=== PATIENT | female | born 2000 | race Caucasian/White ===

== ENCOUNTER 2020-09-17 09:47 | Outpatient (REF) | payer OTHER, SELFPAY | END 2020-09-17 09:48 | disposition home or self-care (01) | LOC: HO.LAB 09:47 | PROVIDERS: Visit Provider Internal Medicine | DX: Z20.828 Contact with and (suspected) exposure to other viral communicable diseases (principal) | CPT/HCPCS: U0003 ==

== ENCOUNTER 2021-03-05 11:00 | Outpatient (RCR) | payer OTHER, SELFPAY ==
--- NOTE | 2020-12-11 18:02 | MHC.PT.EP ---
[facility] [place] Office [place] Office [place] Office [address] Vitaliy Ibrahim [address] [phone] F: [phone] F: [phone] F: [phone] F: [phone] Physical Therapy Plan of Care Date of Evaluation: 12/11/20 Date of Surgery: Diagnosis: This is a 19 yo female presenting to skilled PT with a script for low back pain. Assessment: This is a 19 yo female presenting to skilled PT with a script for low back pain. The patient is here today reporting Dr. Moralez told her she had a slight curve and is now having pain that is getting worse even with back brace and stretches. Her pain has been ongoing for a few years. 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 She was given naproxen for pain and swelling and lidocaine patches at her last PCP visit. Pain is located at tailbone and across low back. She describes this as achy and occasionally burning. Her pain comes and goes. At the worst she had some leg symptoms anterior and lateral to about the knee (the last time this occurred was 3 months ago). She has had PT for this pain in the past (last year) which helped for a few months and then it returned. Assessment reveals pain that ranges 6-9/10. She demos decreased hip ROM, hip/glut and core strength, impaired posture with sitting and standing as well as functional lifting, ? SIJ involvement and impaired pain management. She is functionally limited in work related pushing/pulling and lifting, sleeping and walking. She is a good candidate for skilled PT 2x/wk for 6wks. Frequency and Duration: The patient will be seen 2x/wk for 6wks Short Term Goals: I in HEP Demo good squatting and lifting techniques without cuing from PT Demo proper core stab without cuing from PT Shelter Goals: Demos functional BLE ROM and strength. Improve oswestry by at least 10 points Improve pain at the worst to no more than 2/10 Demo good core control with dynamic work Treatment Plan: Modalities to reduce pain, spasms and effusion. Manual therapy to restore motion and function. Therapeutic exercise to improve strength and flexibility. Neuromuscular re-education for posture and balance. Therapeutic activities to return to functional activities of daily living. Electronically signed by: Jonna West PT Please sign and return to therapist. Thank you for your referral.
--- NOTE | 2021-03-05 12:03 | MHC.PT.DC ---
[facility] [place] Office [place] Office [place] Office [address] Vitaliy Ibrahim [address] [phone] F: [phone] F: [phone] F: [phone] F: [phone] Physical Therapy Discharge Report Diagnosis: This is a 19 yo female presenting to skilled PT with a script for low back pain. Date of Surgery: Date of Evaluation: 12/11/20 Date of Discharge: 03/05/21 Treatments to Date: 19 Cancellations to Date: 0 No Shows to Date: 0 Discharge Status: Achieved Goals Improved Function Independent with HEP Discharge Summary: Pt HAS PROGR VERY WELL IN PT AND HAS MET HER PT GOALS- ULTIMATE GOAL OF PAINFREE WORK TASKS/ ADL TASKS- SHE IS MOTIVATED AND COMPLIANT W HEP AND SELF-SX MGMT STRATEGIES. SHE HAD 0/10 PAIN THIS DATE AND HER OSWESTRY SCORE IMPROVED FROM 21/50 AT EVAL TO 2/50 UPON D/C. Electronically signed by: Jolanta Dickson,PT Please sign and return to therapist. Thank you for your referral.
== END 2021-03-05 12:04 | disposition other institution (70) ==
LOC: HO.PTCHIC 11:00
PROVIDERS: PCP Internal Medicine; Visit Provider Nurse Practitioner Family
DX: M54.5 Low back pain (principal)
CPT/HCPCS: 97110; 97112; 97140; 97161

== ENCOUNTER 2021-05-28 10:50 | Outpatient (REF) | payer OTHER, SELFPAY ==
--- NOTE | ~2021-05-28 | US_ITS ---
EXAMINATION: US PELVIC AND TRANSVAGINAL CLINICAL INFORMATION: Pelvic/perineal pain. Right lower quadrant pain. LMP 1 week ago. COMPARISON: Most recent CT abdomen/pelvis dated 04/28/2020 and pelvic ultrasound dated 02/07/2019. TECHNIQUE: Transabdominal and transvaginal imaging of the pelvis was obtained. FINDINGS: The uterus is anteverted and measures 7 x 2.8 x 4 cm. No myometrial lesion. The endometrium is unremarkable measuring 0.5 cm in thickness. The right ovary is sonographically unremarkable measuring 3.3 x 2 x 1.7 cm for a volume of 6.1 mL. There are simple right ovarian follicles. No follow-up imaging recommended. The left ovary is sonographically unremarkable measuring 3.4 x 1.5 x 1.7 cm for a volume of 4.5 mL. No significant pelvic free fluid. US/US pelvic and transvaginal IMPRESSION: Sonographically unremarkable pelvic ultrasound.
== END 2021-05-28 10:51 | disposition home or self-care (01) ==
LOC: HO.US 10:50
PROVIDERS: PCP Internal Medicine; Visit Provider Internal Medicine
DX: R10.2 Pelvic and perineal pain (principal)
CPT/HCPCS: 76830; 76856

== ENCOUNTER 2021-08-08 10:07 | Outpatient (REF) | payer OTHER, SELFPAY ==
--- NOTE | ~2021-08-08 | XR_ITS ---
EXAMINATION: XR SACROILIAC JOINTS CLINICAL INFORMATION: Spondylosis without myelopathy COMPARISON: None TECHNIQUE: 3 views of the sacroiliac joints FINDINGS: Bones and soft tissues are normal. No fracture. Alignment is anatomic. Sacroiliac joint spaces are well-maintained without erosions or surrounding sclerosis. XR/XR sacroiliac joint 1-2V IMPRESSION: Normal sacroiliac joints.
== END 2021-08-08 10:08 | disposition home or self-care (01) ==
LOC: HO.HMGCX 10:07
PROVIDERS: PCP Internal Medicine; Visit Provider Nurse Practitioner Family
DX: Z13.89 Encounter for screening for other disorder (principal)
CPT/HCPCS: 72200

== ENCOUNTER 2021-10-15 11:00 | Emergency (ER) | payer OTHER, SELFPAY ==
[2021-10-15 11:34] VITALS: BP 117/65; PULSE 80; RESP 16; TEMP 36.8; O2SAT 98; BMI 29.2
[2021-10-15 12:01] VITALS: BP 138/79; PULSE 97; RESP 16; TEMP 36.9; O2SAT 99; BMI 29.2
--- NOTE | 2021-10-15 12:30 | ED.WOUNDLAC ---
HPI - Wound/Laceration General Chief Complaint: Wound/Laceration Stated Complaint: hand laceration at work Time Seen by Provider: 10/15/21 11:49 Source: patient Mode of arrival: ambulatory Limitations: no limitations History of Present Illness HPI narrative: 20-year-old female who works at [employer] presenting to the ED with work related injury she was cutting up thick wall when she looked down she noticed blood in her hand and she sustained a laceration with a knife while she was cutting the pickle prior to arrival. She reports that she is not up-to-date on tetanus. She denies any paresthesias. She denies any thoughts of foreign bodies. She denies any other symptoms complaint or concerns at this time. Onset (ago): minute(s) (Prior to arrival) Extremity Location: left: hand (Little finger) Place: work Patient tetanus UTD: No Context: accidental Associated symptoms: none Treatments prior to arrival: bandage Related Data Previous Rx's Medication Instructions Recorded ibuprofen 600 mg tablet 600 mg PO Q8H PRN #90 tab 08/08/21 Allergies Allergy/AdvReac Type Severity Reaction Status Date / Time ondansetron [From ZOFRAN] Allergy Mild RASH Verified 08/08/21 09:44 Review of Systems Review of Systems: Constitutional : No Fever, No Chills, Cardiovascular : No Chest Pain, No SOB Respiratory : No Dyspnea Gastrointestinal : No abdominal pain Musculoskeletal : No Joint Swelling Skin : positive skin laceration, No Foreign bodies, No rash, No surrounding erythema Neuro : No Weakness, No Numbness/tingling Psych : No SI/HI/thoughts of self injury Yes all other systems are reviewed and are negative [facility] Past Medical History Attestation statement: The following information was validated with the patient. Medical History Anxiety, generalized Lumbar pain Surgical History History of ovarian cystectomy Family History Family History Father Medical history non-contributory Mother Medical history non-contributory Brother No problems noted. Family/Other Breast cancer Social History Social History Alcohol intake: never Patient Tobacco Use Status: Never used Tobacco Advance Directives: No Advance Directives Information Provided: No Patient : No Physical Exam Vital Signs: Vital Signs: Last Vital Signs Temp 98.5 F 10/15/21 12:01 Pulse 97 10/15/21 12:01 Resp 16 10/15/21 12:01 BP 138/79 10/15/21 12:01 Pulse Ox 99 10/15/21 12:01 BMI result Body Mass Index 29.2 vital signs have been reviewed as normal and appeared to be correct. Blood pressure normal Heart rate normal. Respiration rate normal. Temperature normal. Oxygen saturation normal. Appearance: Alert. Oriented X3. No acute distress. Head: Normal external exam. Normocephalic. Atraumatic. Eyes: PERRLA. EOMI. Conjunctiva and sclera normal. Eyelids normal. ENT: Pharynx normal. Uvula midline. Moist mucous membranes. Neck: Normal inspection. Neck supple. FROM. CVS: Normal heart rate and rhythm. Respiratory: No respiratory distress. Painless inspiration. Skin: Skin warm and dry. Normal skin color. Normal skin turgor. No rashes/lesions/lacerations noted. Extremities: To left hand right over the MCP of the 5th digit patient has 1 cm intermediate laceration no active bleeding or foreign bodies or bony tenderness or obvious ligamentous or tendon injury. Otherwise all other Extremities exhibit normal range of motion and nontender. Neuro: Oriented X 3. No motor deficit. No sensory deficit. Reflexes normal. Normal steady gait. No focal neuro deficits noted. Vascular: + radial pulses/+ 2 distal pedal pulses/+2 dorsalis pedis b/l. Normal cap refill. No cyanosis noted to upper extremity nails and lower extremity toes nails. Course Course Course Narrative: Patient now status post laceration repair with 3 sutures placed. Patient tolerated procedure well. No complications. Tetanus updated at this time. Will DC home instructions return and 10-14 days for suture removal and to return sooner if any new or worsening symptoms. Along with instructions to follow-up work connection. Patient understands agrees this is plan. MDM - Wound/Laceration Medical Records Attestation: I reviewed the patient's medical records. Procedures Laceration Laceration 1: Site: hand (Right over the left 5th MCP) Side (If applicable): left Size (cm): 1 Description: linear Depth: simple, single layer Local Anesthetic: lidocaine 2% Amount of anesthesia used (mL): 5 Pre-repair: wound explored, irrigated extensively and deep structures intact Skin layer closed with: nylon Size (cm): 4-0 Number of sutures: 3 Technique: simple, interrupted Discharge Plan Discharge Clinical Impression: Finger laceration, Work related injury Patient Disposition: Home, Self-Care Instructions: Finger Laceration (ED), Return to Work Instructions (ED) Prescriptions: No Action ibuprofen 600 mg tablet 600 mg PO Q8H PRN (Reason: pain) Qty: 90 RF: 0 Referrals: Tien Moralez MD [Primary Care Provider] - 2 days Emma Gastelum PA [Emergency Midlevel Provider] - 10 days (PLEASE RETURN IN 10 DAYS FOR SUTURE REMOVAL RETURN SOONER IF ANY NEW OR WORSENING SYMPTOMS) Work Connection [Provider Group] - 2 days Stand Alone Forms: Work/School Release Print Language: Czech
[2021-10-15] MEDS: Diphth,Pertus(ACell),Tet Adult 0.5 ML SYRINGE IM (12:45)
[2021-10-15] MEDS: Lidocaine HCl 2 % MPF 5 ML VIAL SUBCUT (12:46)
== END 2021-10-15 12:48 | disposition home or self-care (01) ==
PROVIDERS: Emergency Provider Emergency Medicine; PCP Internal Medicine
DX: S61.217A Laceration without foreign body of left little finger without damage to nail, initial encounter (principal); S60.512A Abrasion of left hand, initial encounter; M79.642 Pain in left hand; W26.9XXA Contact with unspecified sharp object(s), initial encounter; Y93.9 Activity, unspecified; Y92.9 Unspecified place or not applicable; Y99.9 Unspecified external cause status
CPT/HCPCS: 12001; 90471; 90715; 99283; 99284

== ENCOUNTER 2021-12-10 08:39 | Emergency (ER) | payer OTHER, SELFPAY ==
--- NOTE | ~2021-12-10 | US_ITS ---
EXAMINATION: US ABDOMEN COMPLETE CLINICAL INFORMATION: Elevated liver enzymes with vomiting. Question gallstones.. COMPARISON: CT scan of April 28, 2020 TECHNIQUE: Real-time imaging of the abdominal viscera. FINDINGS: PANCREAS: Normal. ABDOMINAL AORTA: The proximal, mid, and distal segments are normal in caliber. INFERIOR VENA CAVA: Visualized portions are normal. LIVER: Normal. The liver is normal in size. The liver contour is normal. Parenchymal echogenicity is normal. No focal hepatic lesion. There is no intrahepatic biliary duct dilatation seen. GALLBLADDER: Normal. The gallbladder is physiologically distended without evidence of stones, sludge, polyps, wall thickening or pericholecystic fluid. COMMON BILE DUCT: Normal in caliber measuring 0.4 cm in diameter. RIGHT KIDNEY: Normal. No hydronephrosis. No renal calculi or focal parenchymal lesions. The kidney measures 9.8 cm in maximum dimension. LEFT KIDNEY: Normal. No hydronephrosis. No renal calculi or focal parenchymal lesions. The kidney measures 9.6 cm in maximum dimension. SPLEEN: Normal. The spleen measures 10.3 cm in maximum dimension. FREE FLUID: None. US/US abdomen complete IMPRESSION: No ultrasound abnormality of the abdomen appreciated.
--- NOTE | ~2021-12-10 | US_ITS ---
EXAMINATION: US OBSTETRICAL ULTRASOUND CLINICAL INFORMATION: Abdominal pain COMPARISON: February 07, 2019. LMP: October 31, 2021. Gestational age by maternal dates is 5 weeks 5 days. Estimated date of delivery by maternal dates is August 07, 2022. TECHNIQUE: OB ultrasound including transvaginal study. FINDINGS: There is a single intrauterine gestational sac with visible yolk sac, embryo/fetus, and cardiac activity. There is no significant subchorionic hemorrhage or hematoma. HR: 114 beats per minute. CRL (crown rump length): 0.38 cm (6 weeks 1 day +/- 4 days). PEPE (estimated date of delivery): August 04, 2022 +/- 4 days. MATERNAL ADNEXA: The right maternal ovary measures 2.5 x 2.6 x 3.4 cm. There is a 1.3 x 1.0 x 1.2 cm heterogeneous and echogenic right ovarian structure likely representing corpus luteum cyst. No ring of vascularity is appreciated. The left maternal ovary measures 2.6 x 1.4 x 2.0 cm. No left adnexal abnormality appreciated. There is no significant maternal adnexal mass. No maternal pelvic ascites. US/US OB pelvic and transvaginal IMPRESSION: 1. Single intrauterine gestation with ultrasound gestational age of 6 weeks 1 day +/- 4 days. 2. Estimated date of delivery is August 04, 2022 +/- 4 days. 3. No maternal adnexal mass or pelvic ascites.
[2021-12-10 08:41] VITALS: BP 125/67; PULSE 88; RESP 16; TEMP 37.1; O2SAT 100; BMI 30.1
--- NOTE | 2021-12-10 09:24 | ED_ITS ---
HPI - General Adult General Chief complaint: Nausea/Vomiting/Diarrhea Stated complaint: vomiting 6 wks Time Seen by Provider: 12/10/21 12:17 Source: patient Mode of arrival: ambulatory Limitations: no limitations History of Present Illness HPI narrative: 20-year-old female about 6 weeks presents to ED for vomiting and not being able to keep anything down. Patient states feeling weak and de hydrated. Patient denies any abdominal pain, vaginal bleeding, vaginal discharge, flank pain, fever, or chills. Patient denies any diarrhea. Patient states unvaccinated against COVID. Patient states her coworkers were positive for COVID and she was exposed to them. Related Data Previous Rx's Medication Instructions Recorded metoclopramide HCl 10 mg tablet 10 mg PO Q6H PRN 7 Days #28 tab 12/10/21 (Reglan) Allergies Allergy/AdvReac Type Severity Reaction Status Date / Time ondansetron [From ZOFRAN] Allergy Mild RASH Verified 10/24/21 09:06 Review of Systems Verdana 4l Review of Systems: Verdana 4d Nausea and Verdana 4d vomiting Verdana 4d Yes all other systems are reviewed and are negative [facility] Past Medical History Medical History Anxiety, generalized Lumbar pain Surgical History History of ovarian cystectomy Family History Family History Father Medical history non-contributory Mother Medical history non-contributory Brother No problems noted. Family/Other Breast cancer Social History Social History Alcohol intake: never Patient Tobacco Use Status: Never used Tobacco Advance Directives: No Advance Directives Information Provided: No Patient : Yes Physical Exam Verdana 4l Vital Signs: Verdana 4d Verdana 4d Vital Signs: Verdana 4d Verdana 4Bd Last Vital Signs Verdana 4d Customer Order Clerk New 4d Customer Order Clerk New 4d Temp 98.8 F 12/10/21 08:41 Customer Order Clerk New 4d Pulse 88 12/10/21 08:41 Customer Order Clerk New 4d Resp 16 12/10/21 08:41 BP 125/67 12/10/21 08:41 Pulse Ox 100 12/10/21 08:41 BMI result Body Mass Index 30.1 Const: General: cooperative, healthy appearing, comfortable, no acute distress, well developed, alert, awake and Physically active Orientation/consciousness: patient oriented x3 HENMT: Head: Yes normal to inspection, Yes No palpable skull fracture present, Yes normocephalic, Yes atraumatic and No abrasion Eyes: General: appearance normal, both eyes and all related structures Neck: Neck: Yes normal visual inspection, Yes full ROM, Yes no lymphadenopathy, Yes no meningeal signs, Yes trachea midline, Yes supple, No anterior neck swelling and No tender Chest: Chest palpation & inspection: normal inspection of the chest and normal palpation of entire chest wall Resp: Effort & Inspection: normal respiratory effort and able to speak in complete sentences Auscultation: clear to auscultation bilaterally Cardio: Jugular venous distension: no JVD Heart sounds: S1 normal heart sound present and S2 normal heart sound present GI: Inspection: Yes normal to inspection and No abdominal wall ecchymosis Palpation (GI): Soft to palpation, not firm, nontender, no guarding and not rigid : General: No CVA tenderness and Yes no CVA tenderness Back/Spine/Pelvis: Back: no CVA tenderness, No CVA tenderness and No back tenderness Skin: General skin exam: no rashes or lesions noted and elasticity normal Neuro: General: patient oriented x3, gait normal, no meningeal signs and CN's II-XI intact bilaterally Cranial nerves: Yes CN's II-XII intact bilaterally Extrem: General: Yes normal to inspection and Yes full ROM Psych: Appearance: grossly normal, well kempt and not disheveled Course Course Course Narrative: Patient denies any abdominal pain or complaints. Will do labs, IV hydration, Reglan, and re-evaluate. COVID swab ordered Reevaluation(s) Reevaluation #1: Slight elevation in liver enzymes. Went to re-evaluate patient snf patient states she does not have any abdominal pain presently in the ER but she did have some mild upper abdominal pain couple of days ago while vomiting and than resolved. Patient states abdominal pain occurred only after vomiting a lot. Due to elevated liver enzyme was sent for upper abdominal ultrasound to make sure there is no gallstones. Will also do transvaginal ultrasound. Patient's COVID test positive which contributed probably to her symptoms. Time: 11:51 Reevaluation #2: Patient ultrasound transvaginal pelvic positive for intrauterine 5 weeks with heart rate. Abdominal ultrasound negative for gallstones. UA negative for UTI. Patient states feeling better. Patient informed she is COVID positive and educated on signs of respiratory distress and told to return to the ED if she has no symptoms. Patient informed to return to the ED immediately she has abdominal pain, inability to tolerate solid food/liquid, fever, chills, or any other concerning symptoms. Patient passed PO challenge. Time: 13:30 Medical Decision Making MDM Narrative Medical decision making narrative: Hyperemesis . COVID-19 Lab Data Result diagrams: 12/10/21 09:28 12/10/21 09:28 Labs: Lab Results 12/10/21 12/10/21 12/10/21 Range/Units 09:28 09:28 09:28 WBC 5.7 (4.8-10.8) X10*3/uL RBC 4.43 (4.20-5.50) X10*6/uL Hgb 13.6 (12.0-16.0) g/dl Hct 39.5 (37.0-47.0) % MCV 89.2 (80.0-98.0) fL MCH 30.7 (27.0-33.0) pg MCHC 34.4 (31.0-35.0) g/dl RDW 11.9 (11.0-16.0) % Plt Count 224 (160-400) X10*3/uL MPV 9.9 (9.4-12.3) fL Immature Gran % (Auto) 0.2 (0.0-0.4) % Neut % (Auto) 58.8 (45-73) % Lymph % (Auto) 30.1 (20-40) % [place] % (Auto) 10.7 (2-11) % Eos % (Auto) 0.0 (0-4) % Baso % (Auto) 0.2 (0-2) % Lymph # (Auto) 1.7 (1.2-4.9) X10*3/uL [place] # (Auto) 0.6 (0.1-1.2) X10*3/uL Eos # (Auto) 0.0 (0.0-0.4) X10*3/uL Baso # (Auto) 0.0 (0.0-0.2) X10*3/uL Abs Immat Gran (auto) 0.01 (0.00-0.03) X10*3/uL Absolute Neuts (auto) 3.3 (2.0-8.3) x10*3/uL Absolute Nucleated RBC 0.000 (0.0-0.012) X10*3/uL Nucleated RBC % (auto) 0.0 (0.0-0.2) /100WBC PT 12.8 (9.9-13.0) SEC INR 1.1 (0.9-1.1) APTT 29.0 (24.1-38.0) SEC Sodium 138 (135-145) mmol/L Potassium 3.8 (3.3-5.1) mmol/L Chloride 108 (96-108) mmol/L Carbon Dioxide 22 (22-29) mmol/L Anion Gap 12 (12-20) BUN 10 (9-16) mg/dL Creatinine 0.72 (0.5-1.4) mg/dL Estim Creat Clear Calc 122.5 Estimated GFR > 60 Random Glucose 80 (60-115) mg/dL Calcium 9.0 (8.4-10.2) mg/dL Total Bilirubin 0.7 (0.0-1.0) mg/dL Direct Bilirubin 0.4 (0.0-0.5) mg/dL AST 44 H (5-31) U/L ALT 69 H (0-31) U/L Alkaline Phosphatase 35 L (39-117) U/L Total Protein 6.9 (6.5-8.0) g/dL Albumin 4.1 (3.5-5.0) g/dL Lipase 10 (8-78) U/L Beta HCG, Quant 30012 mIU/mL Urine Color Urine Appearance Urine pH (5.0-8.0) Ur Specific Lamar (1.005-1.025) Urine Protein (NEG-TRACE) MG/DL Urine Glucose (UA) (NEG) MG/DL Urine Ketones (NEG) MG/DL Urine Blood (NEG) Urine Nitrite (NEG) Ur Leukocyte Esterase (NEG) Urine RBC (0) /HPF Urine WBC (0-4) /HPF Ur Squamous Epith Cells /LPF Urine Bacteria /LPF Urine Mucus /LPF Urine Test (NEGATIVE) COVID-19 (ADAMARIS) (Negative) COVID-19 Clin Com Blood Type 12/10/21 12/10/21 12/10/21 Range/Units 11:51 11:51 11:51 WBC (4.8-10.8) X10*3/uL RBC (4.20-5.50) X10*6/uL Hgb (12.0-16.0) g/dl Hct (37.0-47.0) % MCV (80.0-98.0) fL MCH (27.0-33.0) pg MCHC (31.0-35.0) g/dl RDW (11.0-16.0) % Plt Count (160-400) X10*3/uL MPV (9.4-12.3) fL Immature Gran % (0.0-0.4) % (Auto) Neut % (Auto) (45-73) % Lymph % (Auto) (20-40) % [place] % (Auto) (2-11) % Eos % (Auto) (0-4) % Baso % (Auto) (0-2) % Lymph # (Auto) (1.2-4.9) X10*3/uL [place] # (Auto) (0.1-1.2) X10*3/uL Eos # (Auto) (0.0-0.4) X10*3/uL Baso # (Auto) (0.0-0.2) X10*3/uL Abs Immat Gran (0.00-0.03) (auto) X10*3/uL Absolute Neuts (2.0-8.3) (auto) x10*3/uL Absolute Nucleated (0.0-0.012) RBC X10*3/uL Nucleated RBC % (0.0-0.2) /100WBC (auto) PT (9.9-13.0) SEC INR (0.9-1.1) APTT (24.1-38.0) SEC Sodium (135-145) mmol/L Potassium (3.3-5.1) mmol/L Chloride (96-108) mmol/L Carbon Dioxide (22-29) mmol/L Anion Gap (12-20) BUN (9-16) mg/dL Creatinine (0.5-1.4) mg/dL Estim Creat Clear Calc Estimated GFR Random Glucose (60-115) mg/dL Calcium (8.4-10.2) mg/dL Total Bilirubin (0.0-1.0) mg/dL Direct Bilirubin (0.0-0.5) mg/dL AST (5-31) U/L ALT (0-31) U/L Alkaline Phosphatase (39-117) U/L Total Protein (6.5-8.0) g/dL Albumin (3.5-5.0) g/dL Lipase (8-78) U/L Beta HCG, Quant mIU/mL Urine Color YELLOW Urine Appearance HAZY Urine pH 6.0 (5.0-8.0) Ur Specific Lamar >= 1.030 H (1.005-1.025) Urine Protein TRACE (NEG-TRACE) MG/DL Urine Glucose (UA) NEG (NEG) MG/DL Urine Ketones >=80 (NEG) MG/DL Urine Blood TRACE (NEG) Urine Nitrite NEG (NEG) Ur Leukocyte NEG (NEG) Esterase Urine RBC 0 (0) /HPF Urine WBC 0-2 (0-4) /HPF Ur Squamous Epith 1+ /LPF Cells Urine Bacteria NONE /LPF Urine Mucus 1+ /LPF Urine Test (NEGATIVE) COVID-19 (ADAMARIS) Positive A (Negative) COVID-19 Clin Com See Note Blood Type O Positive 12/10/21 Range/Units 11:51 WBC (4.8-10.8) X10*3/uL RBC (4.20-5.50) X10*6/uL Hgb (12.0-16.0) g/dl Hct (37.0-47.0) % MCV (80.0-98.0) fL MCH (27.0-33.0) pg MCHC (31.0-35.0) g/dl RDW (11.0-16.0) % Plt Count (160-400) X10*3/uL MPV (9.4-12.3) fL Immature Gran % (Auto) (0.0-0.4) % Neut % (Auto) (45-73) % Lymph % (Auto) (20-40) % [place] % (Auto) (2-11) % Eos % (Auto) (0-4) % Baso % (Auto) (0-2) % Lymph # (Auto) (1.2-4.9) X10*3/uL [place] # (Auto) (0.1-1.2) X10*3/uL Eos # (Auto) (0.0-0.4) X10*3/uL Baso # (Auto) (0.0-0.2) X10*3/uL Abs Immat Gran (auto) (0.00-0.03) X10*3/uL Absolute Neuts (auto) (2.0-8.3) x10*3/uL Absolute Nucleated RBC (0.0-0.012) X10*3/uL Nucleated RBC % (auto) (0.0-0.2) /100WBC PT (9.9-13.0) SEC INR (0.9-1.1) APTT (24.1-38.0) SEC Sodium (135-145) mmol/L Potassium (3.3-5.1) mmol/L Chloride (96-108) mmol/L Carbon Dioxide (22-29) mmol/L Anion Gap (12-20) BUN (9-16) mg/dL Creatinine (0.5-1.4) mg/dL Estim Creat Clear Calc Estimated GFR Random Glucose (60-115) mg/dL Calcium (8.4-10.2) mg/dL Total Bilirubin (0.0-1.0) mg/dL Direct Bilirubin (0.0-0.5) mg/dL AST (5-31) U/L ALT (0-31) U/L Alkaline Phosphatase (39-117) U/L Total Protein (6.5-8.0) g/dL Albumin (3.5-5.0) g/dL Lipase (8-78) U/L Beta HCG, Quant mIU/mL Urine Color Urine Appearance Urine pH (5.0-8.0) Ur Specific Lamar (1.005-1.025) Urine Protein (NEG-TRACE) MG/DL Urine Glucose (UA) (NEG) MG/DL Urine Ketones (NEG) MG/DL Urine Blood (NEG) Urine Nitrite (NEG) Ur Leukocyte Esterase (NEG) Urine RBC (0) /HPF Urine WBC (0-4) /HPF Ur Squamous Epith Cells /LPF Urine Bacteria /LPF Urine Mucus /LPF Urine Test POSITIVE H (NEGATIVE) COVID-19 (ADAMARIS) (Negative) COVID-19 Clin Com Blood Type Discharge Plan Discharge Clinical Impression: Hyperemesis gravidarum, COVID-19 Patient Disposition: Home, Self-Care Instructions: Hyperemesis Gravidarum (ED), COVID-19 (Coronavirus Disease 2019) (ED) Additional Instructions: You are positive for COVID-19. Recommend self-isolation. Your labs came back normal. Ultrasound confirmed . Ultrasound came back negative for any gallstones. Return to the ED immediately for any abdominal pain, nausea, vomiting, vaginal discharge, vaginal bleeding, flank pain, fever, chills, chest pain, shortness of breath, leg swelling, calf pain, weaknss, dizziness or any other concerning symptoms. Please follow-up with primary care provider and your OBGYN Prescriptions: New metoclopramide HCl [Reglan] 10 mg tablet 10 mg PO Q6H PRN (Reason: nausea and vomiting) 7 Days Qty: 28 0RF Referrals: Jose R Cummins MD [Physician] - 2 days (Hyperemesis ) Stand Alone Forms: Work/School Release Interventions: ED Discharge Assessment Last Done: 12/10/21 15:01 Discharge Date/Time: 12/10/21 15:02 Print Language: Faroese
[2021-12-10 09:32] LABS: MANUAL DIFF FLAG NO
[2021-12-10 09:35] LABS: Basophils Percent Auto 0.2 % (0-2); Hematocrit 39.5 % (37.0-47.0); Hemoglobin 13.6 g/dl (12.0-16.0); Imm Gran Abs Auto 0.01 X10*3/uL (0.00-0.03); Imm Gran Pct Auto 0.2 % (0.0-0.4); Lymphocytes Absolute Auto 1.7 X10*3/uL (1.2-4.9); Lymphocytes Percent Auto 30.1 % (20-40); Mean Corpuscular HGB Conc 34.4 g/dl (31.0-35.0); Mean Corpuscular Hemoglobin 30.7 pg (27.0-33.0); Mean Corpuscular Volume 89.2 fL (80.0-98.0); Mean Platelet Volume 9.9 fL (9.4-12.3); Monocytes Absolute Auto 0.6 X10*3/uL (0.1-1.2); Monocytes Percent Auto 10.7 % (2-11); Neutrophils Absolute Auto 3.3 x10*3/uL (2.0-8.3); Neutrophils Percent Auto 58.8 % (45-73); Platelet Count 224 X10*3/uL (160-400); Red Blood Count 4.43 X10*6/uL (4.20-5.50); Red Cell Distribution Width 11.9 % (11.0-16.0); White Blood Count 5.7 X10*3/uL (4.8-10.8)
[2021-12-10 09:40] LABS: INTERNATIONAL NORM RATIO 1.1 (0.9-1.1); Prothrombin Time 12.8 SEC (9.9-13.0)
[2021-12-10] MEDS: Metoclopramide HCl 10 MG/2 ML VIAL IVPUSH (09:44)
[2021-12-10] MEDS: Lactated Ringers 500 ML 999 ML IV (09:44)
[2021-12-10] MEDS: Lactated Ringers 1,000 ML 999 ML IV (09:44)
[2021-12-10 09:58] LABS: Alanine Aminotransferase 69 U/L (0-31); Albumin Level 4.1 g/dL (3.5-5.0); Alkaline Phosphatase 35 U/L (39-117); Anion Gap 12 (12-20); Aspartate Amino Transferase 44 U/L (5-31); Bilirubin Direct 0.4 mg/dL (0.0-0.5); Bilirubin Total 0.7 mg/dL (0.0-1.0); Blood Urea Nitrogen 10 mg/dL (9-16); Carbon Dioxide 22 mmol/L (22-29); Chloride 108 mmol/L (96-108); Creatinine Clr Calc Pharmacy 122.5; Estimated Glomerular Filt Rate > 60; Glucose Random 80 mg/dL (60-115); Lipase 10 U/L (8-78); Potassium 3.8 mmol/L (3.3-5.1); Sodium 138 mmol/L (135-145); Total Protein 6.9 g/dL (6.5-8.0)
[2021-12-10 10:21] LABS: HCG Quantitative 40479 mIU/mL
[2021-12-10 12:00] LABS: Appearance Urine HAZY; Color Urine YELLOW; Glucose Urine UA NEG (NEG); Leukocyte Esterase Urine NEG (NEG); Nitrite Urine NEG (NEG); Specific Gravity - Urine >= 1.030 (1.005-1.025); UACC Culture Trigger NO; Urine Blood TRACE (NEG); Urine Ketones >=80 MG/DL (NEG); Urine Protein TRACE MG/DL (NEG-TRACE)
[2021-12-10 12:10] LABS: UPreg QC Valid YES; Urine Pregnancy POSITIVE (NEGATIVE)
[2021-12-10 12:12] LABS: COVID-19 Test Positive (Negative); IDNOW Serial# 9DD0AD1C
[2021-12-10 12:20] LABS: RBC Urine 0 /HPF (0); WBC Urine 0-2 /HPF (0-4)
[2021-12-10 12:21] LABS: Mucus Urine 1+ /LPF; Squamous Epithelial Cell Urine 1+ /LPF
== END 2021-12-10 15:02 | disposition home or self-care (01) ==
PROVIDERS: Physician Assistant; Emergency Provider Emergency Medicine; PCP Internal Medicine
DX: O98.511 Other viral diseases complicating pregnancy, first trimester (principal); U07.1 COVID-19; Z3A.01 Less than 8 weeks gestation of pregnancy; O21.0 Mild hyperemesis gravidarum
CPT/HCPCS: 36415; 76700; 76801; 76817; 80053; 81001; 81025; 82248; 83690; 84702; 85025; 85610; 85730; 86900; 86901; 87635; 96361; 96374; 99283; 99284; J2765

== ENCOUNTER 2022-02-28 07:02 | Emergency (ER) | payer OTHER, SELFPAY ==
--- NOTE | ~2022-02-28 | US_ITS ---
EXAMINATION: US OB LIMITED CLINICAL INFORMATION: 17 weeks of . Right lower quadrant pain. COMPARISON: 12/10/2021 TECHNIQUE: Sonographic imaging of the pelvis is performed using a transabdominal transducer. FINDINGS: Limited transabdominal pelvic ultrasound examination is performed. A single viable intrauterine gestation is identified with heart rate of 134 bpm. The visualized posterior placenta has normal, homogeneous echotexture. Left ovary is 3 x 4 x 3.6 cm and has normal size follicles. Color Doppler images with spectral waveforms show presence of normal arterial and venous flow within the left ovary. The right adnexal area is poorly visualized. Shadowing is created by bowel gas in the right lower quadrant. The right ovary cannot be seen. No pelvic free fluid. US/US OB limited IMPRESSION: * Single viable intrauterine gestation is observed with heart rate of 134 bpm. * The right ovary is not visualized, obscured by bowel gas. * The left ovary has normal echo texture, normal-sized follicles, and normal Doppler flow. * No pelvic free fluid.
[2022-02-28 07:05] VITALS: BP 134/67; PULSE 97; RESP 16; TEMP 36.1; O2SAT 99; BMI 33.5
--- NOTE | 2022-02-28 07:13 | ED_ITS ---
HPI - Abdominal Pain General Chief Complaint: Abdominal Pain Stated Complaint: headache r side pain 17wks Time Seen by Provider: 02/28/22 07:12 Source: patient Mode of arrival: ambulatory Limitations: no limitations History of Present Illness HPI narrative: 17 weeks MD elicited complaint: abdominal pain Pertinent past history: other (17 weeks ) Onset (ago): day(s) (3) Pain Consistency: intermittent (only when she lays down at night) Location: RLQ Severity: mild Quality: aching Radiation: none Migration to: no migration Exacerbating factors: other (laying down) Relieving factors: nothing Associated symptoms: other (headache) Related Data Previous Rx's Medication Instructions Recorded metoclopramide HCl 10 mg tablet 10 mg PO Q6H PRN 7 Days #28 tab 12/10/21 (Reglan) nitrofurantoin 100 mg PO BID 5 Days #10 cap 02/28/22 monohydrate/macrocrystals 100 mg capsule (Macrobid) Allergies Allergy/AdvReac Type Severity Reaction Status Date / Time ondansetron [From ZOFRAN] Allergy Mild RASH Verified 02/28/22 07:08 Review of Systems Review of Systems Constitutional : No Weight loss, No Fever, No Chills ENT/Mouth : No sore throat, No Rhinorrhea Eyes: No Swelling, No Redness Cardiovascular : No Chest Pain, No SOB, NoEdema Respiratory : No Cough, No Sputum, No Wheezing Gastrointestinal : no Nausea, no Vomiting, no Diarrhea, positive abdominal Pain, No Hematochezia, No Melena Genitourinary : No Dysuria, No Urinary Frequency, No Hematuria, No Urgency , no bleeding Musculoskeletal : No joint pain, No Myalgias, No Joint Swelling Skin : No Skin Lesions, No rash Neuro : No Weakness, No Numbness, No Dizziness,pos Headache Psych : No Anxiety/Panic, No Depression Heme/Lymph: No Bruising, No Lymphadenopathy Endocrine : No Polyuria, No Polydipsia All other systems reviewed and are negative. [facility] Past Medical History Attestation statement: The following information was validated with the patient. Medical History Anxiety, generalized Lumbar pain Surgical History History of ovarian cystectomy Family History Family History Father Medical history non-contributory Mother Medical history non-contributory Brother No problems noted. Family/Other Breast cancer Social History Social History Alcohol intake: never Patient Tobacco Use Status: Never used Tobacco Advance Directives: Yes Advance Directives Information Provided: Yes Advance Directives on File: No Patient : Yes Physical Exam ED Vital Signs: Vital Signs - 24 hr 02/28/22 07:05 02/28/22 08:28 Temperature 97 F Pulse Rate 97 82 Respiratory Rate 16 18 Blood Pressure 134/67 115/69 Pulse Oximetry 99 100 BMI result Body Mass Index 33.5 Appearance: Alert. Oriented X3. No acute distress. Eyes: Pupils equal, round and reactive to light. ENT: Pharynx normal. Neck: Normal inspection. Neck supple. CVS: Normal heart rate and rhythm. Pulses normal. Respiratory: No respiratory distress. Breath sounds normal. Abdomen: Soft and non-tender. Skin: Skin warm and dry. Normal skin color. Normal skin turgor. Extremities: No lower extremity edema. No calf ttp Neuro: Oriented X 3. No motor deficit. No sensory deficit. Procedures Procedure Narrative Procedure Narrative: US: + cardiac activity, single IUP, + FM Course Course Course Narrative: no WBC count, neg CRP doubt appendicitis mild UTI will start on macrobid US negative BP decreased, feels better stable for DC MDM - Abdominal Pain MDM Narrative Medical decision making narrative: 21 yo female G1 at 17w D = US at this time c/o intermittent atypical RLQ pain no n/v/d vaginal bleeding fevers no discharge - seems very atypical for appendicitis given it only happens at night. At this time her abdomen is benign. She does have a history of ovarian cysts. Will obtain basic labs, UA. hydrate and tylenol - she has very mild headache suspect a component of dehydration - no fevers, normal neuro exam, no meningeal signs doubt meningitis will repeat BP Lab Data Result diagrams: 02/28/22 07:56 02/28/22 07:56 Labs: Lab Results 02/28/22 02/28/22 02/28/22 Range/Units 07:56 07:56 08:04 WBC 9.5 (4.8-10.8) X10*3/uL RBC 3.61 L (4.20-5.50) X10*6/uL Hgb 11.1 L (12.0-16.0) g/dl Hct 32.6 L (37.0-47.0) % MCV 90.3 (80.0-98.0) fL MCH 30.7 (27.0-33.0) pg MCHC 34.0 (31.0-35.0) g/dl RDW 13.0 (11.0-16.0) % Plt Count 244 (160-400) X10*3/uL MPV 9.4 (9.4-12.3) fL Immature Gran % (Auto) 0.7 H (0.0-0.4) % Neut % (Auto) 76.8 H (45-73) % Lymph % (Auto) 15.9 L (20-40) % [place] % (Auto) 5.6 (2-11) % Eos % (Auto) 0.8 (0-4) % Baso % (Auto) 0.2 (0-2) % Lymph # (Auto) 1.5 (1.2-4.9) X10*3/uL [place] # (Auto) 0.5 (0.1-1.2) X10*3/uL Eos # (Auto) 0.1 (0.0-0.4) X10*3/uL Baso # (Auto) 0.0 (0.0-0.2) X10*3/uL Abs Immat Gran (auto) 0.07 H (0.00-0.03) X10*3/uL Absolute Neuts (auto) 7.3 (2.0-8.3) x10*3/uL Absolute Nucleated RBC 0.000 (0.0-0.012) X10*3/uL Nucleated RBC % (auto) 0.0 (0.0-0.2) /100WBC Sodium 136 (135-145) mmol/L Potassium 3.8 (3.3-5.1) mmol/L Chloride 108 (96-108) mmol/L Carbon Dioxide 21 L (22-29) mmol/L Anion Gap 11 L (12-20) BUN 7 L (9-16) mg/dL Creatinine 0.58 (0.5-1.4) mg/dL Estim Creat Clear Calc 153.2 Estimated GFR > 60 Random Glucose 83 (60-115) mg/dL Calcium 8.6 (8.4-10.2) mg/dL Magnesium 1.8 (1.6-2.6) mg/dL Total Bilirubin 0.5 (0.0-1.0) mg/dL Direct Bilirubin < 0.2 (0.0-0.5) mg/dL AST 16 D (5-31) U/L ALT 20 (0-31) U/L Alkaline Phosphatase 44 D (39-117) U/L C-Reactive Protein 0.17 (< or = 0.50) mg/dL Total Protein 5.4 L D (6.5-8.0) g/dL Albumin 3.2 L D (3.5-5.0) g/dL Lipase 9 (8-78) U/L Urine Color YELLOW Urine Appearance HAZY Urine pH 6.5 (5.0-8.0) Ur Specific [place] 1.015 (1.005-1.025) Urine Protein NEG (NEG-TRACE) MG/DL Urine Glucose (UA) NEG (NEG) MG/DL Urine Ketones NEG (NEG) MG/DL Urine Blood NEG (NEG) Urine Nitrite NEG (NEG) Ur Leukocyte Esterase 2+ H (NEG) Urine RBC 0-2 (0) /HPF Urine WBC 5-9 H (0-4) /HPF Ur Squamous Epith Cells 2+ /LPF Amorphous Sediment 1+ /LPF Urine Bacteria 2+ /LPF Urine Mucus TRACE /LPF Discharge Plan Discharge Clinical Impression: Acute dehydration Abdominal pain Qualifiers: Abdominal location: right lower quadrant Qualified Code(s): R10.31 - Right lower quadrant pain UTI (urinary tract infection) Qualifiers: Urinary tract infection type: acute cystitis Hematuria presence: without hematuria Qualified Code(s): N30.00 - Acute cystitis without hematuria Patient Disposition: Home, Self-Care Instructions: Dehydration (ED), Abdominal Pain (ED), Urinary Tract Infection in (ED) Additional Instructions: return to ED for any worsening symptoms or concerns please follow up with your OB this week particularly if your symptoms continue if pain worsens please return - labs stable *? Single viable intrauterine gestation is observed with heart rate of 134 bpm. *? The right ovary is not visualized, obscured by bowel gas. *? The left ovary has normal echo texture, normal-sized follicles, and normal Doppler flow.? *? No pelvic free fluid. Prescriptions: New nitrofurantoin monohyd/m-cryst [Macrobid] 100 mg capsule 100 mg PO BID 5 Days Qty: 10 0RF Rx Instructions: must administer with a meal/food No Action metoclopramide HCl [Reglan] 10 mg tablet 10 mg PO Q6H PRN (Reason: nausea and vomiting) 7 Days Qty: 28 0RF Stand Alone Forms: Work/School Release
[2022-02-28 07:59] LABS: MANUAL DIFF FLAG NO
[2022-02-28 08:01] LABS: Basophils Percent Auto 0.2 % (0-2); Eosinophils Absolute Auto 0.1 X10*3/uL (0.0-0.4); Eosinophils Percent Auto 0.8 % (0-4); Hematocrit 32.6 % (37.0-47.0); Hemoglobin 11.1 g/dl (12.0-16.0); Imm Gran Abs Auto 0.07 X10*3/uL (0.00-0.03); Imm Gran Pct Auto 0.7 % (0.0-0.4); Lymphocytes Absolute Auto 1.5 X10*3/uL (1.2-4.9); Lymphocytes Percent Auto 15.9 % (20-40); Mean Corpuscular Hemoglobin 30.7 pg (27.0-33.0); Mean Corpuscular Volume 90.3 fL (80.0-98.0); Mean Platelet Volume 9.4 fL (9.4-12.3); Monocytes Absolute Auto 0.5 X10*3/uL (0.1-1.2); Monocytes Percent Auto 5.6 % (2-11); Neutrophils Absolute Auto 7.3 x10*3/uL (2.0-8.3); Neutrophils Percent Auto 76.8 % (45-73); Platelet Count 244 X10*3/uL (160-400); Red Blood Count 3.61 X10*6/uL (4.20-5.50); White Blood Count 9.5 X10*3/uL (4.8-10.8)
[2022-02-28 08:19] LABS: Appearance Urine HAZY; Color Urine YELLOW; Glucose Urine UA NEG (NEG); Leukocyte Esterase Urine 2+ (NEG); Nitrite Urine NEG (NEG); PH 6.5 (5.0-8.0); Specific Gravity - Urine 1.015 (1.005-1.025); UACC Culture Trigger YES; Urine Blood NEG (NEG); Urine Ketones NEG (NEG); Urine Protein NEG (NEG-TRACE)
[2022-02-28 08:20] LABS: Alanine Aminotransferase 20 U/L (0-31); Albumin Level 3.2 g/dL (3.5-5.0); Alkaline Phosphatase 44 U/L (39-117); Anion Gap 11 (12-20); Aspartate Amino Transferase 16 U/L (5-31); Bilirubin Direct < 0.2 mg/dL (0.0-0.5); Bilirubin Total 0.5 mg/dL (0.0-1.0); Blood Urea Nitrogen 7 mg/dL (9-16); C Reactive Protein 0.17 mg/dL (< or = 0.50); Calcium 8.6 mg/dL (8.4-10.2); Carbon Dioxide 21 mmol/L (22-29); Chloride 108 mmol/L (96-108); Creatinine Clr Calc Pharmacy 153.2; Estimated Glomerular Filt Rate > 60; Glucose Random 83 mg/dL (60-115); Lipase 9 U/L (8-78); Magnesium 1.8 mg/dL (1.6-2.6); Potassium 3.8 mmol/L (3.3-5.1); Sodium 136 mmol/L (135-145); Total Protein 5.4 g/dL (6.5-8.0)
[2022-02-28] MEDS: 0.9 % Sodium Chloride 1,000 ML 999 ML IVCONT (08:24)
[2022-02-28] MEDS: Acetaminophen 325 MG TABLET 650 MG PO (08:24)
[2022-02-28 08:28] VITALS: BP 115/69; PULSE 82; RESP 18; O2SAT 100
[2022-02-28 08:32] LABS: Amorphous Sediment Urine 1+ /LPF; Bacteria Urine 2+ /LPF; Mucus Urine TRACE /LPF; RBC Urine 0-2 /HPF (0); Squamous Epithelial Cell Urine 2+ /LPF
== END 2022-02-28 09:36 | disposition home or self-care (01) ==
PROVIDERS: Emergency Provider Emergency Medicine; PCP Internal Medicine
DX: O23.12 Infections of bladder in pregnancy, second trimester (principal); O26.892 Other specified pregnancy related conditions, second trimester; R10.31 Right lower quadrant pain; O99.282 Endocrine, nutritional and metabolic diseases complicating pregnancy, second trimester; E86.0 Dehydration; Z3A.17 17 weeks gestation of pregnancy
CPT/HCPCS: 36415; 76815; 80048; 80076; 81001; 83690; 83735; 85025; 86140; 87086; 96360; 99284

== ENCOUNTER 2023-04-23 23:54 | Emergency (ER) | payer OTHER, SELFPAY ==
[2023-04-24 00:06] VITALS: BP 113/65; PULSE 63; RESP 18; TEMP 35.9; O2SAT 99; BMI 39.0
[2023-04-24] MEDS: Tetracaine HCl/PF 0.5% Oph Sol 4 ML DROPS 1 DROP EYE-LEFT (02:58)
--- NOTE | 2023-04-24 02:58 | ED_ITS ---
HPI - Eye Problem General Chief complaint: Eye Problems Stated complaint: Eye injury Time Seen by Provider: 04/24/23 02:48 Source: patient Mode of arrival: ambulatory Limitations: no limitations History of Present Illness HPI Narrative: Patient comes to the emergency room complaining of left-sided eye pain. Patient states that she was trying to close her baby to sleep, and accidentally her baby poked/scratched her eye. Patient complaining of redness, tearing and burning pain Related Data Previous Rx's Medication Instructions Recorded nitrofurantoin 100 mg PO BID 5 days #10 caps 02/28/22 monohydrate/macrocrystals 100 mg capsule (Macrobid) erythromycin 5 mg/gram (0.5 %) eye 0.5 inch ophthalmic (eye) TID #3.5 04/24/23 ointment grams ibuprofen 600 mg tablet 600 mg PO TID PRN pain #14 tabs 04/24/23 Allergies Allergy/AdvReac Type Severity Reaction Status Date / Time ondansetron [From ZOFRAN] Allergy Mild RASH Verified 03/16/23 15:28 Review of Systems Review of Systems: Constitutional : No Weight loss, No Fever, No Chills, No Night Sweats, No Fatigue, No Malaise ENT/Mouth : No Hearing loss, No Ear Pain, No Nasal Congestion, No Sinus Pain, No Hoarseness, No sore throat, No Rhinorrhea, No Swallowing Difficulty Eyes: Complaining of eye pain, redness, burning sensation, No Foreign Body, No Discharge, No Vision Changes Cardiovascular : No Chest Pain, No SOB, No Dyspnea on Exertion, No Orthopnea, No Edema, No Palpitations Respiratory : No Cough, No Sputum, No Wheezing, No Smoke Exposure, No Dyspnea Gastrointestinal : No Nausea, No Vomiting, No Diarrhea, No Constipation, No abdominal Pain, No Hematochezia, No Melena Genitourinary : no irregular bleeding, No Dysuria, No Urinary Frequency, No Hematuria, No Urinary Incontinence, No Urgency, No Flank Pain, No Urinary Flow Changes, No Hesitancy Musculoskeletal : No joint pain, No Myalgias, No Joint Swelling Skin : No Skin Lesions, No rash Neuro : No Weakness, No Numbness, No Paresthesias, No Loss of Consciousness, No Dizziness, No Headache Psych : No Anxiety/Panic, No Depression, No SI/HI/AH/VH, No Social Issues, Heme/Lymph: No Bruising, No Bleeding,No Lymphadenopathy Endocrine : No Polyuria, No Polydipsia, No Temperature Intolerance [facility] Past Medical History Medical History Anxiety, generalized Lumbar pain Surgical History History of ovarian cystectomy Family History Family History Father Medical history non-contributory Bipolar 1 disorder Alcoholism Mother Medical history non-contributory Depression Anxiety Brother No problems noted. Family/Other Breast cancer Maternal Aunt Alcoholism Social History Social History Housing: Apartment Alcohol intake: never Patient Tobacco Use Status: Never used Tobacco e-Cigarette/Vaping Use: Never Used Advance Directives: No Advance Directives Information Provided: No Current occupational status: employed Current occupation: [employer] Cognitive needs: No Hearing needs: No Vision needs: No Physical Exam Vital Signs: Vital Signs: Last Vital Signs Temp 96.7 F L 04/24/23 00:06 Pulse 63 04/24/23 00:06 Resp 18 04/24/23 00:06 BP 113/65 04/24/23 00:06 Pulse Ox 99 04/24/23 00:06 O2 Del Method Room Air 04/24/23 00:06 BMI result Body Mass Index 39.0 Const: Other: Appearance: Alert. Oriented X3. No acute distress. Eyes: pupils equal, round and reactive to light. On fluorescein stain test, patient has a corneal abrasion right in the middle, approximately 3 mm x 3 mm, negatie stephanie sign ENT: Pharynx normal. Neck: Normal inspection. Neck supple. No lymph nodes noted. No crepitus CVS: Normal heart rate and rhythm. Pulses normal. Normal S1 and S2 Respiratory: No respiratory distress. Breath sounds normal. No Wheezing. No rales Abdomen: Soft and nontender. No rigidity. No distention. Skin: Skin warm and dry. Normal skin color. Normal skin turgor. Extremities: No lower extremity edema. No Lacerations. No Rash Neuro: Oriented X 3. No motor deficit. No sensory deficit. Moving all extremities. No slurred speech. CN 2 through 12 grossly intact Psych: calm, cooperative, normal affect Medical Decision Making Medical Decision Making MDM Narrative: -I discussed the patient's physical exam, patient has a corneal abrasion -patient was given 1 dose of IM Toradol Discharge Plan Discharge Clinical Impression: Abrasion, corneal Patient Disposition: Home, Self-Care Instructions: Corneal Abrasion (ED) Additional Instructions: Please follow-up with your primary care physician tomorrow. If you have any worsening or new symptoms, please return to the emergency room or call 911 Prescriptions: New erythromycin 5 mg/gram (0.5 %) ointment 0.5 inch ophthalmic (eye) TID Qty: 3.5 0RF ibuprofen 600 mg tablet 600 mg PO TID PRN (Reason: pain) Qty: 14 0RF No Action nitrofurantoin monohyd/m-cryst [Macrobid] 100 mg capsule 100 mg PO BID 5 Days Qty: 10 0RF Rx Instructions: must administer with a meal/food
== END 2023-04-24 03:10 | disposition home or self-care (01) ==
PROVIDERS: Emergency Provider Emergency Medicine; PCP Internal Medicine
DX: S05.01XA Injury of conjunctiva and corneal abrasion without foreign body, right eye, initial encounter (principal); W50.4XXA Accidental scratch by another person, initial encounter; Y93.89 Activity, other specified; Y92.039 Unspecified place in apartment as the place of occurrence of the external cause; Y99.9 Unspecified external cause status
CPT/HCPCS: 99281; 99283

== ENCOUNTER 2023-10-11 11:31 | Emergency (ER) | payer OTHER, SELFPAY ==
[2023-10-11] VITALS (7 sets, daily range): BP systolic 91–134; BP diastolic 48–79; PULSE 70–95; RESP 16–18; TEMP 36.4–37.8; O2SAT 98–100; BMI 35.7
--- NOTE | ~2023-10-11 | US_ITS ---
US/US OB pelvic and transvaginal IMPRESSION: 1. Unremarkable uterus with no intrauterine distal sac seen.. 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 Heterogeneous complex area in right adnexa. No pole seen within. Cannot exclude ectopic. Recommend follow-up with hCG and if clinically indicated repeat ultrasound. There is moderate free fluid in cul-de-sac. EXAMINATION: US OBSTETRICAL ULTRASOUND CLINICAL INFORMATION: Right lower quadrant pain. COMPARISON: Ultrasound OB 02/28/2022 LMP: Unknown. Gestational age by maternal dates is unknown. Estimated date of delivery by maternal dates is unknown. TECHNIQUE: Transverse abdominal and transvaginal imaging pelvis is performed. FINDINGS: The uterus is anteverted measuring 8.1 cm in length, 4.1 cm in AP and 5.22 cm in transverse dimension. Endometrial thickness is 1.3 cm. There is no intrauterine distal sac or pole. The right ovary measures 4.7 x 3.6 x 4.2 cm. There is hyperechoic area in the ovary measuring 2.8 x 3.3 x 2.9 cm question dermoid. There is a heterogeneous area in the right adnexa measuring 2.7 x 2.6 x 3.2 cm. There is no increased vascularity. The left ovary measures 2.7 x 2.2 x 2.2 cm and appears unremarkable. There is moderate free fluid in the cul-de-sac
--- NOTE | ~2023-10-11 | US_ITS ---
EXAMINATION: US RETROPERITONEAL LIMITED (RENAL ONLY) CLINICAL INFORMATION: Right flank pain. COMPARISON: Ultrasound abdomen complete 12/10/2021 TECHNIQUE: Routine grayscale imaging of kidneys was performed. FINDINGS: RIGHT KIDNEY: 10.0 4.1 x 4.5 cm (SAG x AP x TRV). The kidney is normal in size, contour, and echogenicity. Renal cortical thickness is normal. No calculi or focal parenchymal lesions. No hydronephrosis. LEFT KIDNEY: 10.1 x 6.2 x 5.0 cm (SAG x AP x TRV). The kidney is normal in size, contour, and echogenicity. Renal cortical thickness is normal. No calculi or focal parenchymal lesions. No hydronephrosis. US/US renal BI IMPRESSION: Unremarkable renal ultrasound.
--- NOTE | 2023-10-11 12:14 | ED.ABDPAIN ---
HPI - Abdominal Pain General Chief Complaint: Urogenital-Female Stated Complaint: LRQ pain Time Seen by Provider: 10/11/23 17:32 Source: patient Mode of arrival: ambulatory Limitations: no limitations History of Present Illness HPI narrative: Patient is a 22-year-old female presents emergency department for evaluation of right were but drink per day. Reports sudden onset at approximately 0900 this morning. Pain radiates into the right lower back and toward the umbilicus. She has nausea and associated vomiting, reports numerous episodes of clear emesis. Endorses urinary frequency, dysuria, and hematuria. Denies vaginal bleeding or pelvic pain. States last menstrual period 09/15/23. Denies fevers, chills, chest pain, shortness of breath, diarrhea, constipation, hematochezia, melena, numbness or tingling of the extremities. Related Data Home Medications Medication Instructions Recorded Confirmed sertraline 25 mg tablet 12.5 mg PO DAILY 04/26/23 Previous Rx's Medication Instructions Recorded erythromycin 5 mg/gram (0.5 %) eye 0.5 inch ophthalmic (eye) TID #3.5 04/24/23 ointment grams ibuprofen 600 mg tablet 600 mg PO TID PRN pain #14 tabs 04/24/23 Allergies Allergy/AdvReac Type Severity Reaction Status Date / Time ondansetron [From ZOFRAN] Allergy Mild RASH Verified 04/26/23 11:18 Review of Systems Review of Systems Yes all other systems are reviewed and are negative PMFSH Past Medical History Attestation statement: The following information was validated with the patient. Source: old records reviewed Medical History Anxiety, generalized Lumbar pain Surgical History History of ovarian cystectomy Family History Family History Father Medical history non-contributory Bipolar 1 disorder Alcoholism Mother Medical history non-contributory Depression Anxiety Brother No problems noted. Family/Other Breast cancer Maternal Aunt Alcoholism Social History Housing: Apartment Alcohol intake: never Patient Tobacco Use Status: Never used Tobacco e-Cigarette/Vaping Use: Never Used Use of substances other than those prescribed or required for medical reasons: No Advance Directives: No Advance Directives Information Provided: Yes Current occupational status: employed Current occupation: [employer] Cognitive needs: No Hearing needs: No Vision needs: No Physical Exam ED Vital Signs: Vital Signs - 24 hr 10/11/23 12:12 10/11/23 17:15 10/11/23 18:00 Temperature 97.6 F Pulse Rate 76 70 Respiratory Rate 16 18 18 Blood Pressure 134/79 119/71 Pulse Oximetry 100 98 Oxygen Delivery Method Room Air Room Air 10/11/23 19:54 10/11/23 22:00 Temperature 98.8 F 100.0 F Pulse Rate 73 86 Respiratory Rate 16 16 Blood Pressure 107/48 L 91/51 L Pulse Oximetry 98 Oxygen Delivery Method Room Air BMI result Body Mass Index 35.7 Appearance: Alert.?Oriented to person, place and time. No acute distress.?Normal affect. Eyes: Pupils equal, round and reactive to light.? ENT: Pharynx normal.?? Neck: Normal inspection.? Neck supple.?? CVS: Heart sounds normal. Normal heart rate and rhythm.? Pulses normal.?? Respiratory: No respiratory distress.? Lung sounds clear to auscultation bilaterally?? Abdomen: Soft with right lower quadrant tenderness upon palpation, no rebound tenderness. No rigidity. No guarding. Positive right CVA tenderness.. Normoactive bowel sounds. Skin: Skin warm and dry.? Normal skin color.? Extremities: No lower extremity edema.? No calf ttp? Neuro: Moves all extremities spontaneously. Sensation intact bilaterally. No focal neuro deficits. Ambulates with normal steady gait. Course Course Course Narrative: This is a rapid medical exam. Deferred additional HPI, ROS, PE to primary provider. 22 yo female with history of ovarian cysts here with RLQ pain which radiates to back with vomiting, urinary frequency/hematuria. LMP 09/15 Will obtain labs, UA, ur preg VSS Reevaluation(s) Reevaluation #1: Microscopic hematuria noted, no bacteriuria, urine sample provided without gross hematuria, when asked patient states she does not believe blood previously seen to be vaginal. The testing today is positive the. Will obtain transabdominal transvaginal ultrasound and renal ultrasound to exclude calculi. Time: 18:32 Reevaluation #2: Renal ultrasound unremarkable. Pelvic ultrasound reveals no intrauterine sac identified, heterogeneous complex tear in the right adnexa no pole is seen within, no increased vascularity, cannot exclude ectopic , moderate free fluid in the cul-de-sac. Discussed this case with ED attending Dr. De Oliveira, currently no bone drier coverage. Will attempt to call [facility] to speak with bone drier with for consultation. Time: 21:30 Reevaluation #3: [facility] transfer line called back, OB and CRAWLER TRACTOR OPERATOR both in emergent surgeries, unable to take call. Pending their call back at this time. Dr. De Oliveira updated. Patient continues to have right lower quadrant pain and tenderness. Will medicate with morphine IV at this time. Time: 23:20 Additional Reevaluation(s): Received call back from [facility] CRAWLER TRACTOR OPERATOR Dr. Rubio, who reviewed case, concern for ruptured ectopic , and given hypotension, current BP 107/56, recommends transfer to ED for stabilization, spoke with ED, excepting physician Dr Callie Acosta, she will be transported by EMS. Medical Decision Making Medical Decision Making [facility] Narrative: Patient is a 22-year-old female with past medical history of ovarian cyst with laparoscopic ovarian cystectomy in 2007 presenting to the emergency department for evaluation of right lower quadrant abdominal pain with nausea/vomiting as per HPI. At the time my examination she appears uncomfortable, she has notable right lower quadrant tenderness upon palpation, no rigidity and no guarding. Right CVA tenderness. Will obtain CBC to evaluate for leukocytosis/ anemia, CMP and lipase to evaluate for abnormal electrolytes /abnormal renal function/ abnormal hepatic/biliary function, CT AP and Urinalysis. Patient to receive 1 L normal saline IV fluid, Reglan IV, Toradol IV. Disposition pending results. Differential Diagnosis Differential Diagnoses: The differential diagnosis associated with the presentation includes (Renal colic, ureteral calculi, pyelonephritis, urinary tract infection, appendicitis, ovarian cyst, ovarian torsion) Admission/Observation Consideration of admission/observation: Escalation of care including admission/observation considered (See narrative above and course narrative for further detail) Lab Data [facility] Lab Attestation statement: I reviewed the patient's lab results. CBC is without leukocytosis or anemia. CMP overall unremarkable. 10/11/23 13:50 10/11/23 13:50 Labs: Lab Results 11/27/23 11/27/23 Range/Units 13:50 17:59 WBC 10.5 (4.8-10.8) X10*3/uL RBC 4.44 D (4.20-5.50) X10*6/uL Hgb 13.4 D (12.0-16.0) g/dl Hct 40.2 D (37.0-47.0) % MCV 90.5 (80.0-98.0) fL MCH 30.2 (27.0-33.0) pg MCHC 33.3 (31.0-35.0) g/dl RDW 12.9 (11.0-16.0) % Plt Count 268 (160-400) X10*3/uL MPV 10.0 (9.4-12.3) fL Immature Gran % (Auto) 0.3 (0.0-0.4) % Neut % (Auto) 86.1 H (45-73) % Lymph % (Auto) 11.5 L (20-40) % [place] % (Auto) 1.8 L (2-11) % Eos % (Auto) 0.0 (0-4) % Baso % (Auto) 0.3 (0-2) % Lymph # (Auto) 1.2 (1.2-4.9) X10*3/uL [place] # (Auto) 0.2 (0.1-1.2) X10*3/uL Eos # (Auto) 0.0 (0.0-0.4) X10*3/uL Baso # (Auto) 0.0 (0.0-0.2) X10*3/uL Abs Immat Gran (auto) 0.03 (0.00-0.03) X10*3/uL Absolute Neuts (auto) 9.0 H (2.0-8.3) x10*3/uL Absolute Nucleated RBC 0.000 (0.0-0.012) X10*3/uL Nucleated RBC % (auto) 0.0 (0.0-0.2) /100WBC Sodium 140 (135-145) mmol/L Potassium 3.5 (3.3-5.1) mmol/L Chloride 110 H (96-108) mmol/L Carbon Dioxide 23 (22-29) mmol/L Anion Gap 11 L (12-20) BUN 5 L (9-16) mg/dL Creatinine 0.75 (0.5-1.4) mg/dL Estim Creat Clear Calc 126.2 Estimated GFR > 60 Random Glucose 113 (60-115) mg/dL Calcium 8.9 (8.4-10.2) mg/dL Total Bilirubin 0.4 (0.0-1.0) mg/dL Direct Bilirubin 0.2 (0.0-0.5) mg/dL AST 25 (5-31) U/L ALT 39 H (0-31) U/L Alkaline Phosphatase 44 (39-117) U/L C-Reactive Protein < 0.10 (< or = 0.50) mg/dL Total Protein 7.1 (6.5-8.0) g/dL Albumin 4.4 (3.5-5.0) g/dL Beta HCG, Quant 1473 mIU/mL Urine Color Dark Yellow Urine Appearance Cloudy Urine pH 6.5 (5.0-9.0) Ur Specific [place] >= 1.030 H (1.005-1.025) Urine Protein 30 (1+) H (Neg-Trace) mg/dL Urine Glucose (UA) Negative (Negative) mg/dL Urine Ketones >=160 (Negative) mg/dL Urine Blood Large (3+) H (Negative) Urine Nitrite Negative (Negative) Ur Leukocyte Esterase Trace H (Negative) Urine RBC >20 H (0-2) /HPF Urine WBC 0-5 (0-5) /HPF Ur Squamous Epith Cells 3-5 (0-2) /HPF Urine Bacteria None Seen (None Seen) Hyaline Casts 0-2 (0-2) /LPF Urine Test POSITIVE H (NEGATIVE) Independent Interpretation I performed an independent interpretation of an: CT Scan Radiology Impression Discussion of test interpretation with radiology: I have reviewed the radiologist's reading. Independent Historian Clinical information obtained from an independent historian. History obtained from or confirmed by: Spouse (Present at bedside who confirms history) Medications Administered Discontinued Medications Generic Name Dose Route Start Last Admin Trade Name Freq PRN Reason Stop Dose Admin Acetaminophen 975 mg 10/11/23 18:23 10/11/23 18:40 Acetaminophen 325 Mg Tablet PO 10/11/23 18:24 975 mg ONCE ONE Administration Sodium Chloride 1,000 mls @ 999 mls/hr 10/11/23 18:00 10/11/23 18:42 Ns IV 10/11/23 19:00 999 mls/hr .Q1H1M PAOLO Administration Metoclopramide HCl 10 mg 10/11/23 17:46 10/11/23 18:41 Metoclopramide Hcl 10 Mg/2 Ml Vial IVPUSH 10/11/23 17:47 10 mg ONCE ONE Administration Discharge Plan Discharge Clinical Impression: , ectopic Patient Disposition: On License Of [facility] Transfer Details: [facility] Prescriptions: No Action erythromycin 5 mg/gram (0.5 %) ointment 0.5 inch ophthalmic (eye) TID Qty: 3.5 0RF ibuprofen 600 mg tablet 600 mg PO TID PRN (Reason: pain) Qty: 14 0RF sertraline 25 mg tablet 12.5 mg PO DAILY
[2023-10-11 13:59] LABS: MANUAL DIFF FLAG NO
[2023-10-11 14:01] LABS: Basophils Percent Auto 0.3 % (0-2); Hematocrit 40.2 % (37.0-47.0); Hemoglobin 13.4 g/dl (12.0-16.0); Imm Gran Abs Auto 0.03 X10*3/uL (0.00-0.03); Imm Gran Pct Auto 0.3 % (0.0-0.4); Lymphocytes Absolute Auto 1.2 X10*3/uL (1.2-4.9); Lymphocytes Percent Auto 11.5 % (20-40); Mean Corpuscular HGB Conc 33.3 g/dl (31.0-35.0); Mean Corpuscular Hemoglobin 30.2 pg (27.0-33.0); Mean Corpuscular Volume 90.5 fL (80.0-98.0); Monocytes Absolute Auto 0.2 X10*3/uL (0.1-1.2); Monocytes Percent Auto 1.8 % (2-11); Neutrophils Percent Auto 86.1 % (45-73); Platelet Count 268 X10*3/uL (160-400); Red Blood Count 4.44 X10*6/uL (4.20-5.50); Red Cell Distribution Width 12.9 % (11.0-16.0); White Blood Count 10.5 X10*3/uL (4.8-10.8)
[2023-10-11 14:14] LABS: Alanine Aminotransferase 39 U/L (0-31); Albumin Level 4.4 g/dL (3.5-5.0); Alkaline Phosphatase 44 U/L (39-117); Anion Gap 11 (12-20); Aspartate Amino Transferase 25 U/L (5-31); Bilirubin Direct 0.2 mg/dL (0.0-0.5); Bilirubin Total 0.4 mg/dL (0.0-1.0); Blood Urea Nitrogen 5 mg/dL (9-16); Calcium 8.9 mg/dL (8.4-10.2); Carbon Dioxide 23 mmol/L (22-29); Chloride 110 mmol/L (96-108); Creatinine Clr Calc Pharmacy 126.2; Estimated Glomerular Filt Rate > 60; Glucose Random 113 mg/dL (60-115); Potassium 3.5 mmol/L (3.3-5.1); Sodium 140 mmol/L (135-145); Total Protein 7.1 g/dL (6.5-8.0)
[2023-10-11 18:09] LABS: C Reactive Protein < 0.10 mg/dL (< or = 0.50)
[2023-10-11 18:10] LABS: Appearance Urine Cloudy; Color Urine Dark Yellow; Glucose Urine UA Negative (Negative); Leukocyte Esterase Urine Trace (Negative); Nitrite Urine Negative (Negative); PH 6.5 (5.0-9.0); Specific Gravity - Urine >= 1.030 (1.005-1.025); UMIC TRIGGER UACC YES; Urine Blood Large (3+) (Negative); Urine Ketones >=160 mg/dL (Negative); Urine Protein 30 (1+) mg/dL (Neg-Trace)
[2023-10-11 18:11] LABS: HCG Quantitative 1473 mIU/mL
[2023-10-11 18:12] LABS: UPreg QC Valid YES; Urine Pregnancy POSITIVE (NEGATIVE)
[2023-10-11 18:21] LABS: Bacteria Urine None Seen (None Seen); Hyaline Casts Urine 0-2 /LPF (0-2); RBC Urine >20 /HPF (0-2); WBC Urine 0-5 /HPF (0-5)
[2023-10-11] MEDS: Acetaminophen 325 MG TABLET 975 MG PO (18:40)
[2023-10-11] MEDS: Metoclopramide HCl 10 MG/2 ML VIAL IVPUSH (18:41)
[2023-10-11] MEDS: 0.9 % Sodium Chloride 1,000 ML 999 ML IV (18:42)
--- NOTE | 2023-10-11 18:55 | PC.NURSE ---
pt in ultrasound
--- NOTE | 2023-10-11 19:57 | MHC.EDTECH ---
tHIS PCT ASSUMED CARE OF PT AT 1945 ,VITALS TAKEN ,RN PAGE IS AWARE OF PT LOW BP.
--- NOTE | 2023-10-11 22:05 | PC.NURSE ---
procedure analyst made this rn and provider coco aware of low bp. no new orders this rn in contact with [facility] beatriz regarding disposition no new plans per beatriz
[2023-10-11] MEDS: Morphine Sulfate 4 MG/ML CARTRIDGE IVPUSH (23:36)
--- NOTE | 2023-10-11 23:50 | MHC.EDTECH ---
Call out to alejandra at [phone] to book transport for pt to [facility], estimated eta given was 0030
--- NOTE | 2023-10-11 23:54 | PC.NURSE ---
pt medicated according to mar awaiting for ride to transport pt to [facility]
--- NOTE | 2023-10-12 00:29 | PC.NURSE ---
this rn has made x 3 attempts to call nurse to nurse report to [facility] [place] [facility] with no answer
--- NOTE | 2023-10-12 00:37 | PC.NURSE ---
this rn attempted without success at [id number] to give rn to rn report [employer] supervisor aware
--- NOTE | 2023-10-12 00:42 | PC.NURSE ---
this rn able to give rn to rn report to tosin zee @ [facility] [place]. em[facility] to transport [place] [facility] [place] [facility]
== END 2023-10-12 00:43 | disposition short-term general hospital (02) ==
PROVIDERS: Nurse Practitioner Family; Emergency Provider Emergency Medicine; PCP Internal Medicine
DX: O00.90 Unspecified ectopic pregnancy without intrauterine pregnancy (principal); R10.31 Right lower quadrant pain
CPT/HCPCS: 36415; 76775; 76801; 76817; 80048; 80076; 81001; 81025; 84702; 85025; 86140; 96361; 96374; 96375; 99285; J2270; J2765